=== PATIENT | female | born 1935 | race Caucasian/White ===

== ENCOUNTER → 2018-12-13 | Outpatient (REF) | payer MEDICARE, BC ==
[~2018-12-13] MED LIST: AMOXICILLIN/CL875 MG PO; AMOXICILLIN500 MG PO; DIOVAN HC1 PO; FLORASTOR250 M1 PO; LEVOTHYROXIN75 MC1; PANTOPRAZOLE SO40 M1 PO; PRAVASTATIN SOD20 MG PO; PREDNISONE20 MG PO; ZITHROMAX500 MG PO
== END | disposition home or self-care (01) ==
LOC: CT 14:44
PROVIDERS: ATTEND Nurse Practitioner
DX: R05 Cough (principal)

== ENCOUNTER 2022-12-08 07:45 | Day surgery (SDC) | payer MEDICARE, BC ==
[~2022-12-08] VITALS: Ht 160 cm; Wt 64.0 kg
[~2022-12-08 07:45] MED LIST changes: +ASPIRIN81 MG PO; +CLOBETASOL E0.05 % EX; +COLACE100 MG PO; +CYANOCOBAL1000 MCG/M IM; +FAMOTIDINE20 M1 PO; -LEVOTHYROXIN75 MC1; +LEVOTHYROXIN75 MC1 PO; +LORATADINE10 M1 PO; +METFORMIN500 M2 PO; +OMEPRAZOLE DR20 MG PO; +TRIAMCINOLON0.025 % EX; +VITAMIN E400 UNIT PO
[2022-12-08 10:28] VITALS: BP 158/81
== END 2022-12-08 10:43 | disposition home or self-care (01) ==
LOC: ENDO 07:45 → ORM 10:00 → ENDO 10:00 → ORM 11:00
PROVIDERS: ATTEND Internal Medicine Gastroenterology
PROC: 0DBK8ZX Excision of Ascending Colon, Via Natural or Artificial Opening Endoscopic, Diagnostic (ICD-10-PCS; principal; 2022-12-08)
PROC: 0DB98ZX Excision of Duodenum, Via Natural or Artificial Opening Endoscopic, Diagnostic (ICD-10-PCS; 2022-12-08)
PROC: 0DB78ZX Excision of Stomach, Pylorus, Via Natural or Artificial Opening Endoscopic, Diagnostic (ICD-10-PCS; 2022-12-08)
PROC: 0DB68ZX Excision of Stomach, Via Natural or Artificial Opening Endoscopic, Diagnostic (ICD-10-PCS; 2022-12-08)
DX: D50.9 Iron deficiency anemia, unspecified (principal); D12.2 Benign neoplasm of ascending colon; K57.30 Diverticulosis of large intestine without perforation or abscess without bleeding; K64.8 Other hemorrhoids; K29.70 Gastritis, unspecified, without bleeding; K44.9 Diaphragmatic hernia without obstruction or gangrene; K31.7 Polyp of stomach and duodenum; E03.8 Other specified hypothyroidism; Z86.16 Personal history of COVID-19; E11.69 Type 2 diabetes mellitus with other specified complication; E78.5 Hyperlipidemia, unspecified; Z79.84 Long term (current) use of oral hypoglycemic drugs

== ENCOUNTER 2023-01-06 21:19 | Emergency (ER) | payer MEDICARE, BC ==
[~2023-01-06] VITALS: Ht 160 cm; Wt 67.0 kg
[2023-01-06 21:27] VITALS: BP 146/66
[2023-01-06 21:30] VITALS: BP 149/73
[2023-01-06] MEDS ORDERED: LORTAB5 PO (22:12)
[2023-01-06] MEDS ORDERED: VOLTAREN75 MG PO (22:12)
[2023-01-06 22:25] VITALS: BP 149/73
== END 2023-01-06 23:04 | disposition home or self-care (01) ==
LOC: ED 21:19
DX: S42.202A Unspecified fracture of upper end of left humerus, initial encounter for closed fracture (principal); W01.0XXA Fall on same level from slipping, tripping and stumbling without subsequent striking against object, initial encounter; Y92.009 Unspecified place in unspecified non-institutional (private) residence as the place of occurrence of the external cause